=== PATIENT | female | born 1980 ===

== ENCOUNTER 2022-03-28 12:15 | Inpatient (IN) | payer OTHER ==
[~2022-03-28] VITALS: Ht 152.4 cm; Wt 68.5 kg
== END 2022-04-01 12:47 | disposition home or self-care (01) | DRG 743 ==
LOC: ADM 12:15 → OB/GYN 03-29 10:32 → O/R 03-29 10:32 → CIR.AMB 03-29 12:15 → EDSTATUS 03-29 12:15 → SURG 03-29 12:15 → OB/GYN 03-30 00:56
PROVIDERS: ADMIT Obstetrics & Gynecology; ATTEND Obstetrics & Gynecology
PROC: 0UT90ZZ Resection of Uterus, Open Approach (ICD-10-PCS; 2022-03-29)
PROC: 0DNW0ZZ Release Peritoneum, Open Approach (ICD-10-PCS; 2022-03-29)
PROC: 0UB00ZZ Excision of Right Ovary, Open Approach (ICD-10-PCS; principal; 2022-03-29 13:00)
DX: D25.1 Intramural leiomyoma of uterus (principal); N72 Inflammatory disease of cervix uteri; N73.6 Female pelvic peritoneal adhesions (postinfective); N83.291 Other ovarian cyst, right side; N83.292 Other ovarian cyst, left side; N83.02 Follicular cyst of left ovary; Z20.822 Contact with and (suspected) exposure to COVID-19; N83.01 Follicular cyst of right ovary